=== PATIENT | male | born 1985 | race Caucasian/White ===

== ENCOUNTER 2017-10-28 12:18 | Emergency (ER) | payer MEDICAID, OTHER ==
[~2017-10-28] VITALS: Ht 188 cm; Wt 105.8 kg
[2017-10-28 12:42] VITALS: BP 130/81
[2017-10-28] MEDS ORDERED: OLAN5TAB26 PO (12:50)
[2017-10-28] MEDS ORDERED: PARO30TA4 PO (12:50)
[2017-10-28] MEDS ORDERED: DIVA-81 PO (12:50)
== END 2017-10-28 13:27 | disposition home or self-care (01) ==
LOC: ER 12:19
DX: F31.9 Bipolar disorder, unspecified (principal); F20.9 Schizophrenia, unspecified; Z76.0 Encounter for issue of repeat prescription
CPT/HCPCS: 99283